=== PATIENT | female | born 1975 | race African-American/Black ===

== ENCOUNTER 2017-11-12 14:06 | Emergency (ER) | payer BC ==
[~2017-11-12] VITALS: Ht 167.6 cm; Wt 137.6 kg
[2017-11-12] MEDS ORDERED: DILT-XR180 MG PO (14:35)
[2017-11-12] MEDS ORDERED: LISINOPRIL5 MG PO (14:37)
[2017-11-12] MEDS ORDERED: ASPIRIN 81 LOW81 MG PO (14:38)
[2017-11-12] MEDS ORDERED: TORADOL PO (15:33)
[2017-11-12] MEDS ORDERED: FLEXERIL PO (15:33)
[2017-11-12 15:49] VITALS: BP 153/81
== END 2017-11-12 15:49 | disposition home or self-care (01) | DRG 103 ==
LOC: ED 14:06
DX: R51 Headache (principal); I10 Essential (primary) hypertension

== ENCOUNTER 2018-03-18 22:00 | Emergency (ER) | payer BC ==
[~2018-03-18] VITALS: Ht 160 cm; Wt 142.0 kg
[~2018-03-18 22:00] MED LIST: ASPIRIN 81 LOW81 MG PO; DILT-XR180 MG PO; FLEXERIL PO; LISINOPRIL5 MG PO; TORADOL PO
[2018-03-18 22:49] LABS: HEMATOCRIT 36.3 % (37.0-47.0); HEMOGLOBIN 10.8 g/dl (12.0-16.0); IMMATURE GRANULOCYTES 0.3 % (0.0-5.0); MEAN CELL VOLUME 57.3 fL CALC (80.0-100.0); MEAN CORPUSCULAR HGB CONC 29.8 g/L CALC (32.0-36.0); NEUT# 3.67 thou/uL (2.00-7.15); RED BLOOD COUNT 6.34 mill/uL (4.20-5.60); RED CELL DISTRI WIDTH 20.3 % (11.5-15.5)
[2018-03-18 22:50] LABS: URINE BILIRUBIN - DIPSTICK NEGATIVE (NEGATIVE); URINE BLOOD DIPSTICK NEGATIVE (NEGATIVE); URINE CLARITY SL CLOUDY; URINE COLOR YELLOW; URINE GLUCOSE - DIPSTICK NEGATIVE (NEGATIVE); URINE KETONE NEGATIVE (NEGATIVE); URINE LEUK ESTERASE TRACE (NEGATIVE); URINE NITRITE - DIPSTICK NEGATIVE (Negative); URINE PH 5.5 (4.5-8.0); URINE PROTEIN - DIPSTICK NEGATIVE (NEG-TRACE); URINE SPECIFIC GRAVITY >=1.030
[2018-03-18 23:03] LABS: ALBUMIN 3.4 g/dL (3.2-5.0); ALKALINE PHOSPHATASE 117 u/l (38-126); AMYLASE 59 u/l (30-110); ANION GAP 12 (6-22 (CALC)); BILIRUBIN, TOTAL 0.2 mg/dL (0.0-1.4); BUN 11 mg/dL (7-17); BUN/CREATININE RATIO 15 (12-20 (CALC)); CARBON DIOXIDE 30 mmol/l (22-30); CHLORIDE 106 mmol/l (95-108); CREATININE 0.7 mg/dL (0.5-1.0); GFR > 60 ML/MIN (>=60 (CALC)); GFR FOR AFR.AMER. > 60 ML/MIN (>=60 (CALC)); LIPASE 182 u/l (23-300); SGOT/AST 23 u/l (14-36); SODIUM 144 mmol/l (137-146); TOTAL PROTEIN 6.7 g/dL (6.3-8.2)
[2018-03-19] MEDS ORDERED: MONISTAT1 VA (00:39)
[2018-03-19 01:05] VITALS: BP 160/72
== END 2018-03-19 01:05 | disposition home or self-care (01) | DRG 759 ==
LOC: ED 22:00
PROVIDERS: Emergency Medicine
DX: N76.0 Acute vaginitis (principal); I10 Essential (primary) hypertension

== ENCOUNTER 2018-08-27 20:02 | Emergency (ER) | payer BC ==
[~2018-08-27] VITALS: Ht 160 cm; Wt 141.0 kg
[~2018-08-27 20:02] MED LIST changes: +MONISTAT1 VA
[2018-08-27] MEDS ORDERED: TORADOL PO (22:03)
[2018-08-27] MEDS ORDERED: TRAMADOL HCL50 MG PO (22:03)
[2018-08-27 22:10] VITALS: BP 128/83
== END 2018-08-27 22:10 | disposition home or self-care (01) | DRG 552 ==
LOC: ED 20:02
DX: M54.16 Radiculopathy, lumbar region (principal); I10 Essential (primary) hypertension

== ENCOUNTER 2018-10-03 05:53 | Emergency (ER) | payer BC ==
[~2018-10-03] VITALS: Ht 160 cm; Wt 145.0 kg
[~2018-10-03 05:53] MED LIST changes: +TRAMADOL HCL50 MG PO
[2018-10-03] MEDS ORDERED: NEURONTIN300 MG PO (06:09)
[2018-10-03] MEDS ORDERED: PROTONIX40 MG PO (06:09)
[2018-10-03] MEDS ORDERED: SINGULAIR10 MG PO (06:09)
[2018-10-03 06:39] LABS: HEMOGLOBIN 11.4 g/dl (12.0-16.0); IMMATURE GRANULOCYTES 0.4 % (0.0-5.0); MEAN CELL VOLUME 57.5 fL CALC (80.0-100.0); MEAN CORPUSCULAR HGB 16.8 pG CALC (26.0-32.0); MEAN CORPUSCULAR HGB CONC 29.2 g/L CALC (32.0-36.0); NEUT# 2.71 thou/uL (2.00-7.15); RED BLOOD COUNT 6.78 mill/uL (4.20-5.60); RED CELL DISTRI WIDTH 20.7 % (11.5-15.5)
[2018-10-03 07:12] LABS: PROTHROMBIN TIME 10.6 SECONDS (9.0-12.5)
[2018-10-03 07:13] LABS: ALBUMIN 3.7 g/dL (3.2-5.0); ALKALINE PHOSPHATASE 153 u/l (38-126); ANION GAP 12 (6-22 (CALC)); BILIRUBIN, TOTAL 0.4 mg/dL (0.0-1.4); BUN 13 mg/dL (7-17); BUN/CREATININE RATIO 22 (12-20 (CALC)); CARBON DIOXIDE 27 mmol/l (22-30); CHLORIDE 108 mmol/l (95-108); CREATININE 0.6 mg/dL (0.5-1.0); GFR > 60 ML/MIN (>=60 (CALC)); GFR FOR AFR.AMER. > 60 ML/MIN (>=60 (CALC)); POTASSIUM 4.3 mmol/l (3.5-5.1); SGOT/AST 16 u/l (14-36); SODIUM 143 mmol/l (137-146)
[2018-10-03 07:25] LABS: MYOGLOBIN 19 ng/mL (0 - 62)
[2018-10-03 10:18] VITALS: BP 125/82
== END 2018-10-03 10:24 | disposition home or self-care (01) | DRG 313 ==
LOC: ED 05:53
PROVIDERS: Emergency Medicine
DX: R07.9 Chest pain, unspecified (principal); M79.602 Pain in left arm; R94.31 Abnormal electrocardiogram [ECG] [EKG]; I10 Essential (primary) hypertension; R11.0 Nausea
CPT/HCPCS: Q9967; S0164

== ENCOUNTER 2019-07-20 | Emergency (ER) | payer BC ==
[~2019-07-20] MED LIST changes: +NEURONTIN300 MG PO; +PROTONIX40 MG PO; +SINGULAIR10 MG PO
[2019-07-20] MEDS ORDERED: TESSALON PER100 MG PO ×2 (14:01→14:09)
[2019-07-20] MEDS ORDERED: CARTIA XT180 MG PO (14:10)
[2019-11-16] MEDS ORDERED: DICLOFENAC SODI75 MG PO (07:53)
[2019-11-16] MEDS ORDERED: HYDROXYZINE HCL25 M1 PO (07:54)
[2019-11-16] MEDS ORDERED: WOMENS DAILY PO (10:34)
[2019-11-16] MEDS ORDERED: ZYRTEC10 MG PO (10:34)
== END 2019-07-20 14:10 | disposition home or self-care (01) | DRG 204 ==
DX: R07.1 Chest pain on breathing (principal)

== ENCOUNTER 2019-12-08 06:20 | Day surgery (SDC) | payer BC ==
[~2019-12-08] VITALS: Ht 160 cm; Wt 142.9 kg
[~2019-12-08 06:20] MED LIST changes: +CARTIA XT180 MG PO; +DICLOFENAC SODI75 MG PO; +HYDROXYZINE HCL25 M1 PO; +TESSALON PER100 MG PO; +WOMENS DAILY PO; +ZYRTEC10 MG PO
[2019-12-08] MEDS ORDERED: PERCOCET 5/321 COMBO PO (09:23)
[2019-12-08 10:31] VITALS: BP 142/81
== END 2019-12-08 10:54 | disposition home or self-care (01) | DRG 355 ==
LOC: ORM 06:20
PROVIDERS: ATTEND Surgery
PROC: 0WUF0JZ Supplement Abdominal Wall with Synthetic Substitute, Open Approach (ICD-10-PCS; principal; 2019-12-08)
DX: K43.6 Other and unspecified ventral hernia with obstruction, without gangrene (principal); K42.9 Umbilical hernia without obstruction or gangrene; I10 Essential (primary) hypertension; Z11.59 Encounter for screening for other viral diseases; Z01.818 Encounter for other preprocedural examination; Z86.2 Personal history of diseases of the blood and blood-forming organs and certain disorders involving the immune mechanism; Z91.09 Other allergy status, other than to drugs and biological substances; K21.9 Gastro-esophageal reflux disease without esophagitis; Z98.890 Other specified postprocedural states
CPT/HCPCS: J0131; J1100

== ENCOUNTER 2021-05-26 17:28 | Emergency (ER) | payer OTHER ==
[~2021-05-26] VITALS: Ht 160 cm; Wt 130.0 kg
[~2021-05-26 17:28] MED LIST changes: +PERCOCET 5/321 COMBO PO
[2021-05-26 18:10] LABS: HEMATOCRIT 36.7 % (37.0-47.0); HEMOGLOBIN 10.9 g/dl (12.0-16.0); IMMATURE GRANULOCYTES 0.1 % (0.0-5.0); MEAN CELL VOLUME 56.5 fL CALC (80.0-100.0); MEAN CORPUSCULAR HGB 16.8 pG CALC (26.0-32.0); MEAN CORPUSCULAR HGB CONC 29.7 g/dL CAL (32.0-36.0); NEUT# 4.53 thou/uL (2.00-7.15); RED BLOOD COUNT 6.49 mill/uL (4.20-5.60); RED CELL DISTRI WIDTH 20.5 % (11.5-15.5)
[2021-05-26 18:23] LABS: ALBUMIN 3.8 g/dL (3.2-5.0); ALKALINE PHOSPHATASE 142 u/l (38-126); ANION GAP 10 (6-22 (CALC)); BILIRUBIN, TOTAL 0.4 mg/dL (0.0-1.4); BUN 11 mg/dL (7-17); BUN/CREATININE RATIO 13 (12-20 (CALC)); CARBON DIOXIDE 30 mmol/l (22-30); CHLORIDE 104 mmol/l (95-108); CREATININE 0.8 mg/dL (0.5-1.0); GFR > 60 ML/MIN (>=60 (CALC)); GFR FOR AFR.AMER. > 60 ML/MIN (>=60 (CALC)); LIPASE 89 u/l (23-300); POTASSIUM 3.6 mmol/l (3.5-5.1); SGOT/AST 17 u/l (14-36); SODIUM 141 mmol/l (137-146); TOTAL PROTEIN 7.8 g/dL (6.3-8.2)
[2021-05-26 18:42] LABS: ACT PARTIAL THROMBO TIME 24.5 SECONDS (20.0-32.5); PROTHROMBIN TIME 10.5 SECONDS (9.0-12.5)
[2021-05-26 22:56] VITALS: BP 153/70
== END 2021-05-26 23:00 | disposition home or self-care (01) | DRG 313 ==
LOC: ED 17:28
DX: R07.89 Other chest pain (principal); I10 Essential (primary) hypertension; Z87.442 Personal history of urinary calculi; Z20.822 Contact with and (suspected) exposure to COVID-19

== ENCOUNTER 2022-09-07 17:24 | Emergency (ER) | payer OTHER ==
[2022-09-07] VITALS (11 sets, daily range): BP systolic 140–183; BP diastolic 84–95
[~2022-09-07] VITALS: Ht 160 cm; Wt 145.0 kg
[2022-09-07 18:44] LABS: BASO% 0.4 % (0-3); EOS% 3.5 % (0-8); HEMATOCRIT 34.7 % (37.0-47.0); HEMOGLOBIN 10.2 g/dl (12.0-16.0); IMMATURE GRANULOCYTES 0.5 % (0.0-5.0); LYMPH% 29.4 % (15-41); MEAN CELL VOLUME 55.8 fL CALC (80.0-100.0); MEAN CORPUSCULAR HGB 16.4 pG CALC (26.0-32.0); MEAN CORPUSCULAR HGB CONC 29.4 g/dL CAL (32.0-36.0); MONO% 5.8 % (2-13); NEUT# 4.65 thou/uL (2.00-7.15); NEUT% 60.4 % (42-76); RED BLOOD COUNT 6.22 mill/uL (4.20-5.60); RED CELL DISTRI WIDTH 20.4 % (11.5-15.5)
[2022-09-07 19:08] LABS: HCG SERUM/URINE (NEG/POS) NEGATIVE (NEGATIVE)
[2022-09-07 19:10] LABS: ALBUMIN 4.1 g/dL (3.2-5.0); ALKALINE PHOSPHATASE 127 u/l (38-126); ANION GAP 13 (6-22 (CALC)); BUN 11 mg/dL (7-17); BUN/CREATININE RATIO 13 (12-20 (CALC)); CARBON DIOXIDE 27 mmol/l (22-30); CHLORIDE 105 mmol/l (95-108); CREATININE 0.8 mg/dL (0.5-1.0); GFR FOR AFR.AMER. > 60 ML/MIN (>=60 (CALC)); GFR OTHER RACES > 60 ML/MIN (>=60 (CALC)); POTASSIUM 3.5 mmol/l (3.5-5.1); SGOT/AST 21 u/l (14-36); SODIUM 142 mmol/l (137-146); TOTAL PROTEIN 7.8 g/dL (6.3-8.2)
[2022-09-07 19:11] LABS: BILIRUBIN, TOTAL 0.2 mg/dL (0.02-1.3)
== END 2022-09-07 21:07 | disposition home or self-care (01) | DRG 204 ==
LOC: ED 17:24
PROVIDERS: Family Medicine
DX: R06.02 Shortness of breath (principal); Z20.822 Contact with and (suspected) exposure to COVID-19; I10 Essential (primary) hypertension